=== PATIENT | male | born 1940 | race Caucasian/White ===

== ENCOUNTER → 2019-04-07 | Outpatient (CLI) | payer MEDICARE, OTHER | LOC: M.RAD 08:53 | DX: M81.0 Age-related osteoporosis without current pathological fracture (principal); M16.12 Unilateral primary osteoarthritis, left hip ==

== ENCOUNTER 2019-06-28 06:00 | Inpatient (IN) | payer MEDICARE, OTHER ==
[2019-06-17 09:28] LABS: ABSOLUTE BASOPHILS 0.1 thou/uL (0.0-0.2); ABSOLUTE EOSINOPHILS 0.4 thou/uL (0.0-0.7); ABSOLUTE LYMPHOCYTES 1.1 thou/uL (0.8-5.3); ABSOLUTE MONOCYTES 0.5 thou/uL (0.0-1.2); ABSOLUTE NEUTROPHILS 5.6 thou/uL (1.6-8.1); BASOPHILS 1.2 %; EOSINOPHILS 4.8 %; HEMATOCRIT 36.7 % (42.0-52.0); LYMPHOCYTES 14.1 %; MCH 31.3 pg (26.0-34.0); MCHC 35.4 g/dL (28.0-37.0); MCV 88.5 fL (80.0-100.0); MONOCYTES 6.4 %; MPV 7.8 fl. (7.2-11.1); NUCLEATED RBCS 0 /100WBC; PLATELET COUNT* 239 thou/uL (150-400); POLYS 73.5 %; RBC 4.14 mil/uL (4.50-6.00); WBC 7.6 thou/uL (4.0-11.0)
[2019-06-17 09:37] LABS: APTT 26.6 Seconds (25.0-31.3); PROTIME 10.7 Seconds (9.20-11.50)
[2019-06-17 09:44] LABS: ALBUMIN 3.4 g/dL (3.4-5.0); CALCIUM 8.7 mg/dL (8.5-10.1); CREATININE 1.2 mg/dL (0.6-1.3); POTASSIUM 4.1 mmol/L (3.5-5.1); TOTAL BILIRUBIN 0.7 mg/dL (<0.1-1.0); TOTAL PROTEIN 7.3 g/dL (6.4-8.2)
[2019-06-17 10:36] LABS: ESR (SEDRATE) 35 mm/hr (0-20)
[~2019-06-28] VITALS: Ht 162.6 cm; Wt 71.7 kg
[~2019-06-28 06:00] MED LIST: ASA81BEC PO; CARVEDILOL25 MG PO; HYDROCHLOROTH12.5 M1 PO; LEVO-T100 MCG PO; PROSCAR 5MG TABL5 MG PO; ZETIA10 MG PO
[2019-06-28 07:36] VITALS: BP 142/85
[2019-06-28 12:30] VITALS: BP 143/75
--- NOTE | 2019-06-28 13:04 | NUR ---
PT ADMITTED WITH LT KENIA HIP. PT ALERT AND ORIENTED. PT ON ROOM AIR WITH CAPNO. LUNGS CLEAR. PULSES 2+ ALL EXREMITIES. LT HIP DRESSING C/D/I WITH ICE PACK. MARITA HOSE ON BILAT. FOOT PUMPS IN PLACE. LT FA IV WITH FLUIDS RUNNING. LAST BM THIS MORNING. PT HAS NOT VOIDED AT THIS TIME. FALL RISK PRECAUTIONS IN PLACE. HOURLY ROUNDING COMPLETED. WILL CONTINUE TO MONITOR.
--- NOTE | 2019-06-28 16:18 | NUR ---
PT REMAINED ALERT AND ORIENTED. PT VOIDED THIS SHIFT. PAIN MEDS GIVEN ORDERED. PT WORKED WITH THERAPY THIS SHIFT. FALL RISK PRECAUTIONS IN PLACE. HOURLY ROUNDING COMPLETED. WILL CONTINUE TO MONITOR.
[2019-06-28] MEDS ORDERED: LIPITOR 40 MG T40 M1 PO (18:31)
[2019-06-28 21:16] VITALS: BP 186/21
[2019-06-29] VITALS (10 sets, daily range): BP systolic 111–220; BP diastolic 63–111
[2019-06-29] MEDS ORDERED: BENADRYL25 MG PO (00:08)
--- NOTE | 2019-06-29 03:19 | NUR ---
ASSUMED CARE OF PT FROM [facility] AT 0100. PT IS ALERT AND ORIENTED. PERRLA. PT REPORTED NOT BEING ABLE TO URINATE. BLADDER SCAN SHOWED 715ML. PT WAS STRAIGHT CATH. 600ML OBTAINED. PTS BLOOD PRESSURE WAS ELEVATED IN THE 200'S SYSTOLIC. CARDENE STARTED. BLOOD PRESSURE IS 156/83 AT THIS TIME. PT IS IN SINUS RYTHM ON THE TELEMETRY. PT IS RESTING COMFORTABLY IN BED. RESPIRATIONS ARE EVEN AND NONLABORED. WILL CONTINUE TO MONITOR PT.
--- NOTE | 2019-06-29 04:33 | NUR ---
PT BLADDER SCANNED AGAIN. SCAN SHOWED 700 ML. MCKEE WAS PLACED PER DR GODWIN.
[2019-06-29 05:16] LABS: HEMATOCRIT 35.1 % (42.0-52.0); HEMOGLOBIN 12.4 gm/dL (14.0-18.0)
--- NOTE | 2019-06-29 14:28 | NUR ---
Pt is A&O. Resides at home with his . Normally active and independent. No DME. No hx of HH or SNF. Discussed dispo, plan is home, probably tomorrow. CM to f/u with ortho to determine if HH should be arranged. Following.
[2019-06-29 17:37] LABS: URINE BILIRUBIN NEGATIVE (Negative); URINE BLOOD 3+ (Negative); URINE CLARITY SL CLOUDY; URINE COLOR YELLOW; URINE GLUCOSE-RANDOM NEGATIVE (Negative); URINE KETONES NEGATIVE (Negative); URINE LEUKOCYTES-REFLEX 1+ (Negative); URINE NITRITE-REFLEX NEGATIVE (Negative); URINE PROTEIN 1+ (Negative); URINE SPECIFIC GRAVITY >= 1.030 (1.005-1.030); URINE UROBILINOGEN 0.2 E.U./dl (0.2-1.0)
[2019-06-29 17:48] LABS: HYALINE CASTS 4-10 Moderate /LPF (None Seen); URINE RBC >20 Many /HPF (0-2)
[2019-06-29 17:49] LABS: BACTERIA-REFLEX 1-9 Few /HPF (None Seen); MUCUS 0-3 Light strn/LPF (None Seen); SQUAMOUS NONE SEEN /LPF (0-3); URINE WBC-REFLEX 6-15 Few /HPF (0-5)
[2019-06-29 17:50] LABS: CRYSTALS None Seen /LPF (None Seen)
--- NOTE | 2019-06-29 19:48 | NUR ---
ASSUMED PT CARE AT 0730, FULL ASSESMENT DONE CHARTED. PT A/O X4, C/O PAIN IN LEFT THIGH/HIP. MEDS GIVEN PER OCT. PTS MCKEE REMOVED, DID VOID SMALL AMOUNTS THIS AFTERNOON, BLADDER SCAN APPROX 1830 SHOWED 219CC IN BLADDER. PT UP WITH ASSIST, FALL PRECAUTIONS IN PLACE, PT REMINDED TO CALL FOR ASSIST. REPORT GIVEN TO AFIA ORDAZ
[2019-06-30] VITALS: BP 106/63
[2019-06-30 04:00] VITALS: BP 106/72
--- NOTE | 2019-06-30 04:14 | NUR ---
Pt is aox4 and in no acute distress. Respirations are even and unlabored. Pt showed no significant fluid rentention (<250 mls) on bladder scan x2. Pain controlled at this time. Pt sleeping comfortably at this time. Will continue to monitor.
[2019-06-30 04:47] LABS: HEMATOCRIT 29.1 % (42.0-52.0)
[2019-06-30 05:01] LABS: HEMOGLOBIN 10.3 gm/dL (14.0-18.0)
[2019-06-30 07:55] VITALS: BP 109/63
[2019-06-30] MEDS ORDERED: ELIQUIS2.5 MG PO (12:28)
[2019-06-30] MEDS ORDERED: OXYCODONE HCL 55 MG PO (12:30)
[2019-06-30] MEDS ORDERED: TRAMADOL 50 MG50 MG PO (12:31)
[2019-06-30 12:38] VITALS: BP 109/63
[2019-06-30] MEDS ORDERED: FLOMAX0.4 MG PO (13:11)
[2019-06-30] MEDS ORDERED: PYRIDIUM200 MG PO (13:12)
--- NOTE | 2019-06-30 14:30 | NUR ---
PATIENT DISCHARGED TO HOME. DISCHARGE PAPERS REVIEWED AND SIGNED. PRESCRIPTIONS AND INORMATION SHEETS GIVEN. IV REMOVED. PATIENT DENIES NEED FOR HOME HEALTH. PATIENT TAKEN BY WHEELCHAIR TO EXIT. LEFT WITH .
--- NOTE | 2019-07-01 09:24 | OP ---
[address] [address] OPERATIVE REPORT Name: WERNER RIVERA Room: [address]#: [id number] Admission: 06/28/19 Attend Phys: Jono Craft Discharge: 06/30/19 Date of : 44 Report #: [id number] THIS REPORT FOR: //name// CC: Ang Underwood DICTATED BY: Abebe Owens DO DATE OF SERVICE: 06/28/2019 PREOPERATIVE DIAGNOSIS: Left hip advanced degenerative joint disease. POSTOPERATIVE DIAGNOSIS: Left hip advanced degenerative joint disease. PROCEDURE PERFORMED: Left total hip arthroplasty. SURGEON: Ang Henderson DO COLLECTION MANAGER: Abebe Owens DO ANESTHESIA: General. ESTIMATED BLOOD LOSS: 300 mL. COMPLICATIONS: None. CONDITION: Stable to PACU. ANTIBIOTICS: 2 grams Ancef IV preoperatively. ORTHOPEDIC IMPLANTS: Biomet total hip system was utilized with the following components. 1. A size 54-mm finned acetabular shell. 2. A 40-mm high wall acetabular liner. 3. A size 12 high-offset femoral component, Microplasty. 4. A 40-mm ceramic head with a +3 taper adapter. INDICATIONS FOR PROCEDURE: The patient is a pleasant 78-year-old male, who has been followed for several months regarding longstanding left hip pain. He has no degenerative joint disease of the left hip with a corresponding collapse of the femoral head and complete obliteration of the joint space. He has failed conservative treatment and was seeking alternative therapies, including surgical intervention. We discussed total hip arthroplasty with the patient in detail. Risks, benefits, complications, and alternatives were discussed with the patient in detail. Risks include but are not limited to bleeding, infection, DVT, PE, [address] [address] OPERATIVE REPORT Name: WERNER RIVERA Room: [address]#: [id number] Admission: 06/28/19 Attend Phys: Jono Craft Discharge: 06/30/19 Date of : 44 Report #: [id number] instability, leg length discrepancy, periprosthetic fracture, continued left hip pain, and complications of anesthesia. The patient expressed understanding and wished to proceed. DESCRIPTION OF PROCEDURE: The patient was transferred to the operating suite and placed on the [place] table in the supine position. He was given the benefit of general anesthesia. The left hip was prepped and draped in the usual sterile fashion. A timeout was taken to confirm the appropriate patient identification, operative site and procedure to be performed. All in the room were in agreement with the timeout. Procedure began by incising the skin at the anterior hip, 2 fingerbreadths distal and 1 fingerbreadth lateral to the ASIS. A dissection was carried down sharply through the subcutaneous tissue to the level of the tensor fascia. Tensor fascia was then incised with a fresh scalpel blade. We then found our interval between the TFL and the sartorius. The circumflex vessels were identified and cauterized using Aquamantys. Dissection was further carried down using electrocautery to the level of the joint capsule. Retractors were placed. The joint capsule was treated with Aquamantys. We then performed a capsulectomy using electrocautery. The femoral neck and femoral head were well visualized at this point. There was noted to be extensive osteophytes throughout and abnormal contour of the femoral head. The sagittal saw was then used to perform our femoral neck cut in a napkin ring fashion. The femoral neck and head were then extracted. The attention was addressed to the acetabulum. Electrocautery was used to further debride any remaining soft tissue as well as the acetabular labrum. The acetabulum was then sequentially reamed to a size 53-mm reamer. C-arm images were obtained, which demonstrated appropriate position of our reamer. The final acetabular shell was then impacted into place. Two bone screws were placed through the acetabular shell. The high wall acetabular liner was then impacted into position. Another set of x-rays were obtained, which demonstrated appropriate position of the final cup as well as appropriate position of our bone screws. Attention was then addressed to the femur. The capsule was further released off the inferior femoral neck as well as near the greater trochanter. This allowed for good external rotation and exposure of the proximal femur. The retractors were placed and the leg was placed into appropriate position. Box osteotome was used to obtain access to the proximal femur followed by the canal finder. The femoral canal was then sequentially broached to a size 12 stem. A trial was performed using a high-offset trial and a +3 head. The C-arm images were obtained, which demonstrated appropriate leg lengths and offset. The hip was taken through range of motion and was found to be stable without any evidence of subluxation or dislocation. Final components were then placed, including the 12-mm high-offset stem and a +3 taper adapter. The wound was thoroughly [facility] [address] [place] [address] OPERATIVE REPORT Name: WERNER RIVERA Room: [address]#: [id number] Admission: 06/28/19 Attend Phys: Jono Craft Discharge: 06/30/19 Date of : 44 Report #: [id number] irrigated. The tensor was closed using a running #1 Stratafix. Subcutaneous tissue was closed using 2-0 Monocryl. Final skin closure was performed using a running subcuticular 3-0 Stratafix followed by skin glue. Sterile dressings were applied. The patient was transferred to PACU in stable condition. Needle and sponge counts were correct at the end of procedure x 2. ATTESTATION: Dr. Henderson was present and scrubbed in through the entirety of the procedure. <ELECTRONICALLY SIGNED> By: Ang Henderson DO 07/01/19 0924 1110 [id number] Henderson DO /nt
== END 2019-06-30 14:30 | disposition home or self-care (01) | DRG 470 ==
LOC: M.TBA 06:00 → M.2W 06:00 → M.PRE 07:39 → M.ORTHSURG 12:20 → M.PRE 14:08 → M.2W 06-29 00:44 → M.3W 06-30 07:42
PROVIDERS: Nurse Practitioner Adult Health; Orthopaedic Surgery; ADMIT Internal Medicine
PROC: 0SRB03Z Replacement of Left Hip Joint with Ceramic Synthetic Substitute, Open Approach (ICD-10-PCS; principal; 2019-06-28)
DX: M16.12 Unilateral primary osteoarthritis, left hip (principal); D62 Acute posthemorrhagic anemia; I25.10 Atherosclerotic heart disease of native coronary artery without angina pectoris; I10 Essential (primary) hypertension; E78.5 Hyperlipidemia, unspecified; E03.9 Hypothyroidism, unspecified; E78.00 Pure hypercholesterolemia, unspecified; M81.0 Age-related osteoporosis without current pathological fracture; R33.9 Retention of urine, unspecified; Z85.46 Personal history of malignant neoplasm of prostate; Z92.3 Personal history of irradiation; Z79.82 Long term (current) use of aspirin; Z79.899 Other long term (current) drug therapy

== ENCOUNTER → 2019-07-22 | Outpatient (CLI) | payer MEDICARE, OTHER ==
[~2019-07-22] MED LIST changes: +BENADRYL25 MG PO; +ELIQUIS2.5 MG PO; +FLOMAX0.4 MG PO; +LIPITOR 40 MG T40 M1 PO; +OXYCODONE HCL 55 MG PO; +PYRIDIUM200 MG PO; +TRAMADOL 50 MG50 MG PO
== END ==
LOC: M.ULTRA 12:22
DX: M79.662 Pain in left lower leg (principal); Z96.642 Presence of left artificial hip joint

== ENCOUNTER → 2020-04-11 | Outpatient (CLI) | payer MEDICARE, OTHER | LOC: M.RAD 13:10 | DX: M81.0 Age-related osteoporosis without current pathological fracture (principal) ==

== ENCOUNTER → 2021-04-11 | Outpatient (CLI) | payer MEDICARE, OTHER | LOC: M.RAD 13:24 | DX: M81.0 Age-related osteoporosis without current pathological fracture (principal) ==